=== PATIENT | male | born 1985 | race African-American/Black ===

== ENCOUNTER 2021-11-13 11:53 | Emergency (ER) | payer BC, SELFPAY ==
[2021-11-13 12:01] VITALS: BP 143/87; PULSE 68; RESP 18; TEMP 36.6; O2SAT 100
--- NOTE | 2021-11-13 12:07 | ED.GENADULT ---
HPI - General Adult General Stated complaint: Dizziness/Blood Pressure Problem Time Seen by Provider: 11/13/21 12:07 Source: patient Mode of arrival: ambulatory Limitations: no limitations History of Present Illness HPI narrative: 36 yo M presents with c/o that yesterday he was dizzy, feeling bad and had intermittent CP. Checked his BP and was 140/90. Took an old lisinopril that was prescribed while he was in assisted. STates his biggest complaint is that he is having trouble getting it up . c/o erectile dysfuntion that he relates to his BP. States he googled this location and says we have a men's clinic at this address . States I really need help finding a men's clinic. Currently denies CP, dizzines. Is speaking in full sentences. Ambulatory with steady gait. All systems reviewed and negative except as noted above. Related Data Home Medications Medication Instructions Recorded Confirmed No Home Medications 11/13/21 11/13/21 Allergies Allergy/AdvReac Type Severity Reaction Status Date / Time No Known Allergies Allergy Verified 11/13/21 12:23 Review of Systems Review of Systems: CONSTITUTIONAL: Denies fever, chills, or sweats. EYES: Denies visual changes, redness, or discharge. ENT: Denies rhinorrhea, congestion, sore throat, or otalgia. CARDIOVASCULAR: Reports chest pain, dizziness. Denies palpitations, or edema. RESPIRATORY: Denies cough or dyspnea. GASTROINTESTINAL: Denies abdominal pain, nausea, vomiting, or diarrhea. GENITOURINARY: Denies dysuria or hematuria. Reports erectile dysfunction. SKIN: Denies rash or itching. MUSCULOSKELETAL: Denies back pain, joint pain, or myalgia. NEUROLOGIC: Denies headache, numbness, or weakness. PSYCHIATRIC: Denies anxiety or depression. All other systems reviewed are negative, except as documented in HPI. [facility] Comments At time of signature, agree with nursing past medical, surgical, social and family history. There is no relevant family history pertinent to the presenting complaint. Exam Narrative: Not able to examine patient prior to him leaving facility. Course Course Level of Care: Express Care Visit Vital Signs Vital signs: Vital Signs Temperature 36.6 C 11/13/21 12:01 Pulse Rate 68 11/13/21 12:01 Respiratory Rate 18 11/13/21 12:01 Blood Pressure 143/87 H 11/13/21 12:01 Pulse Oximetry 100 11/13/21 12:01 Oxygen Delivery Room Air 11/13/21 12:01 Temperature 36.6 C 11/13/21 12:01 Pulse Rate 68 11/13/21 12:01 Respiratory Rate 18 11/13/21 12:01 Blood Pressure 143/87 H 11/13/21 12:01 Pulse Oximetry 100 11/13/21 12:01 Oxygen Delivery Room Air 11/13/21 12:01 Reviewed Medical Decision Making MDM Narrative Medical decision making narrative: offered pt an EKG but explained to him that we are not able to do any lab work here or prescribe any medications for ED. offered to look up men's clinic for him and give the contact info. Pt felt after talking with the nurse and myself there was nothing he could get done here. stated im just wasting my time and really need to find out what's up with my stuff . pt walked out. Vital Signs Vital Signs: Vital Signs Temperature 36.6 C 11/13/21 12:01 Pulse Rate 68 11/13/21 12:01 Respiratory Rate 18 11/13/21 12:01 Blood Pressure 143/87 H 11/13/21 12:01 Pulse Oximetry 100 11/13/21 12:01 Oxygen Delivery Room Air 11/13/21 12:01 Temperature 36.6 C 11/13/21 12:01 Pulse Rate 68 11/13/21 12:01 Respiratory Rate 18 11/13/21 12:01 Blood Pressure 143/87 H 11/13/21 12:01 Pulse Oximetry 100 11/13/21 12:01 Oxygen Delivery Room Air 11/13/21 12:01 reviewed Discharge Plan Discharge Clinical Impression: Dizziness, Erectile dysfunction Patient Disposition: Elopement After Seen by Prov Condition: Stable Follow-up/Referrals: PHYSICIAN,[facility] [Primary Care Provider] - Time of Disposition: 12:27
== END 2021-11-13 12:27 | disposition left against medical advice (07) ==
PROVIDERS: Emergency Provider Nurse Practitioner Family
DX: R42 Dizziness and giddiness (principal); N52.9 Male erectile dysfunction, unspecified; I10 Essential (primary) hypertension
CPT/HCPCS: 99211; G0463